=== PATIENT | male | born 1985 ===

== ENCOUNTER 2016-12-10 14:18 | Inpatient (IN) | payer MEDICAID ==
[2016-12-10 14:18] VITALS: BMI 25.8
[2016-12-10 14:35] VITALS: O2SAT 99
[2016-12-10 15:29] LABS: BASO # 0.1 K/uL (0.0-0.2); BASO % 0.7 % (0.0-2.0); EOS # 0.1 K/uL (0.0-0.7); EOS % 1.5 % (0.0-4.0); HEMATOCRIT 41.2 % (35.0-51.0); LYMPH % 14.6 % (20.0-40.0); MEAN CELL VOLUME 91.4 fL (80.0-94.0); MEAN CORPUSCULAR HEMOGLOBIN 30.8 pg (27.0-31.0); MEAN CORPUSCULAR HGB CONC 33.7 g/dL (33.0-37.0); MEAN PLATELET VOLUME 8.8 fL (7.2-11.7); MONO # 0.8 K/uL (0.0-0.8); MONO % 11.7 % (0.0-10.0); RED CELL DISTRIBUTION WIDTH 13.2 % (11.5-14.5); WHITE BLOOD COUNT 6.9 K/uL (4.8-10.8)
[2016-12-10 15:38] LABS: CHLORIDE 94 mmol/L (98-107); POTASSIUM 4.3 mmol/L (3.6-5.2); SODIUM 138 mmol/L (132-148)
[2016-12-10 15:40] LABS: ALB/GLOB RATIO 1.4 (1.0-2.1); ALKALINE PHOSPHATASE 67 U/L (38-126); AST/SGOT 31 U/L (17-59); BILIRUBIN,TOTAL 0.4 mg/dL (0.2-1.3); CARBON DIOXIDE 28 mmol/L (22-30); GFR AFRICAN-AMERICAN > 60; TOTAL PROTEIN 7.7 g/dL (6.3-8.3)
[2016-12-10 15:41] LABS: ALCOHOL SERUM < 10 mg/dl (0-10); ALT/SGPT 21 U/L (21-72); BLOOD UREA NITROGEN 7 mg/dL (9-20); CALCIUM 8.9 mg/dl (8.6-10.4); GLUCOSE,RANDOM 89 mg/dL (75-110)
--- NOTE | 2016-12-10 15:46 | C.PDOC ---
History Of Present Illness 31 y/o male, whose PMHx includes hypertension (not compliant with medication), presents to the ED complaining of depression and suicidal ideation. Patient is also requesting detox from heroin IV, states last use was yesterday. Notes he hasn't been feeling well, believes its from the withdrawal. Patient notes complaints of body aches, nausea, and headache. He is also requesting food, states he has not eaten today. Patient denies any fever, neck pain, n/v/ diarrhea. Time Seen by Provider: 12/10/16 14:58 Chief Complaint (Nursing): Substance Abuse History Per: Patient History/Exam Limitations: no limitations Onset/Duration Of Symptoms: Days, Gradual, Persistent Current Symptoms Are (Timing): Still Present Involuntary Hold By: None Recent travel outside of the [place]: No Past Medical History Reviewed: Historical Data, Nursing Documentation, Vital Signs Vital Signs: Last Vital Signs Temp 97.9 F 12/10/16 14:31 Pulse 86 12/10/16 14:31 Resp 16 12/10/16 14:31 BP 128/84 12/10/16 14:31 Pulse Ox 99 12/10/16 18:34 - Medical History PMH: Anxiety, Depression, HTN, Hypercholesterolemia Surgical History: No Surg Hx Family History: States: Unknown Family Hx - Social History Hx Tobacco Use: Yes (light smoker) Hx Alcohol Use: Yes Hx Substance Use: Yes - Immunization History Hx Tetanus Toxoid Vaccination: No Hx Influenza Vaccination: No Hx Pneumococcal Vaccination: No Review Of Systems Except As Marked, All Systems Reviewed And Found Negative. Constitutional: Positive for: Other (body aches). Negative for: Fever Gastrointestinal: Positive for: Nausea Musculoskeletal: Negative for: Neck Pain Neurological: Positive for: Headache Psych: Positive for: Depression, Suicidal ideation Physical Exam - Physical Exam Appears: Non-toxic, No Acute Distress Skin: Normal Color, Warm, Dry Head: Atraumatic, Normacephalic Eye(s): bilateral: Normal Inspection, PERRL, EOMI Nose: Normal Oral Mucosa: Moist Neck: Normal ROM, Supple Chest: Symmetrical Cardiovascular: Rhythm Regular Respiratory: Normal Breath Sounds, No Accessory Muscle Use Gastrointestinal/Abdominal: Normal Exam, Soft, No Tenderness Back: Normal Inspection, No CVA Tenderness Extremity: Normal ROM, Other (track olvera to b/l upper extremities - no erythema or discharge) Neurological/Psych: Oriented x3, Normal Speech, Normal Cognition ED Course And Treatment - Laboratory Results Result Diagrams: 12/10/16 15:25 12/10/16 15:25 O2 Sat by Pulse Oximetry: 99 (ra) Pulse Ox Interpretation: Normal Progress Note: Patient placed under 1:1 observation. Plan: Blood Work, Urinalysis, Motrin PO, Zofran PO. Patient accepted for admission under the care of Dr. Eduar Khan. Disposition - Disposition Disposition: HOSPITALIZED Disposition Time: 18:53 Condition: STABLE - Clinical Impression Clinical Impression: Bipolar affective disorder, Opioid abuse - PA / [employer] / Resident Statement MD/DO has reviewed & agrees with the documentation as recorded. - Scribe Statement The provider has reviewed the documentation as recorded by the Scribe (Padmini Rust) All medical record entries made by the Scribe were at my direction and personally dictated by me. I have reviewed the chart and agree that the record accurately reflects my personal performance of the history, physical exam, medical decision making, and the department course for this patient. I have also personally directed, reviewed, and agree with the discharge instructions and disposition.
[2016-12-10 17:42] LABS: URINE BACTERIA RARE (<OCC); URINE BILIRUBIN NEGATIVE (NEGATIVE); URINE BLOOD NEGATIVE (NEGATIVE); URINE COLOR Yellow (YELLOW); URINE GLUCOSE (UA) NORMAL (Normal); URINE KETONE NEGATIVE (NEGATIVE); URINE LEUKOCYTE ESTERASE NEG Leu/uL (Negative); URINE PROTEIN NEGATIVE (NEGATIVE); URINE UROBILINOGEN NORMAL mg/dL (0.2-1.0)
[2016-12-10] MEDS ORDERED: Pneumococcal 23-Valent Vaccine IM ONE (21:13)
[2016-12-10] MEDS ORDERED: Influenza Virus Vaccine 45 mcg/0.5 ml Syr IM ONE (21:13)
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
--- NOTE | 2016-12-12 15:17 | PCM.PYCHPN ---
Psychiatric Progress Note - Psychiatric Progress Note Patient seen today, length of contact: 17 min Patient Chief Complaint: I am experiencing withdrawal symptoms Problems Identified/Issues Discussed: Patient seen and evaluated, chart reviewed and discussed with the nurse. Supportive therapy and psychoeducation were given. Patient reports irritable mood and reports withdrawal symptoms including, cramps , nausea, anxiety and headaches. Patient reports depressed mood and reports feelings of hopelessness and helplessness. He denies any auditory or visual hallucinations. He is tolerating the withdrawal medications and denies any side effects. Medication Change: Yes (Methadone taper) Medical Record Reviewed: Yes Mental Status Examination - Cognitive Function Orientation: Person, Place, Situation, Time Memory: Intact Attention: WNL Concentration: Poor Association: WNL Fund of Knowledge: Poor - Mood Mood: Depressed - Affect Affect: Constricted, Depressed - Speech Speech: Appropriate - Formal Thought Process Formal Thought Process: No Impairment - Suicidal Ideation Suicidal Ideation: No - Homicidal Ideation Homicidal Ideation: No Goal/Treatment Plan - Goal/Treatment Plan Need for Continued Stay: Discharge may exacerbated symptoms, Severe functional impairment Progress Toward Problem(s) and Goals/Treatment Plan: Bipolar disorder mixed severe without psychotic features CBT Psychoeducation Supportive therapy and group therapy Paroxetine 10 mg PO QAM Trazadone 50 mg PO HS Clonidine 0.1 mg PO Q6 PRN Dicyclomine 10 mg PO Q6 PRN Diphenhydramine 50 mg PO Q6 PRN Opioid use disorder severe CBT Psychoeducation Supportive therapy, individual therapy Use [place] for abstinence Opioid withdrawal CBT Psychoeducation Supportive therapy, individual therapy Clonidine when necessary Methadone taper Hypothyroidism Continue prescribed medications Monitor s/s - Smoking Cessation Smoking Cessation Initiated: Yes
--- NOTE | 2016-12-13 13:41 | PCM.PYCHPN ---
Psychiatric Progress Note - Psychiatric Progress Note Patient seen today, length of contact: 16 min Patient Chief Complaint: I am feeling depressed and irritable. Problems Identified/Issues Discussed: Patient seen and evaluated, chart reviewed and discussed with the nurse. Today pt reports improvement in his depressed mood and reports improvement in the withdrawal symptoms. however still reports i.e., cramps, nausea, anxiety and headaches. Patient denies any suicidal ideation or homicidal ideation. He is tolerating the withdrawal medications and denies any side effects. Supportive therapy and psychoeducation were given. Medication Change: Yes (Increase Paxil, Methadone taper) Medical Record Reviewed: Yes Mental Status Examination - Cognitive Function Orientation: Person, Place, Situation, Time Memory: Intact Attention: WNL Concentration: Poor Association: WNL Fund of Knowledge: Poor - Mood Mood: Depressed - Affect Affect: Depressed - Speech Speech: Pressured - Formal Thought Process Formal Thought Process: No Impairment - Suicidal Ideation Suicidal Ideation: No - Homicidal Ideation Homicidal Ideation: No Goal/Treatment Plan - Goal/Treatment Plan Need for Continued Stay: Discharge may exacerbated symptoms, Severe functional impairment Progress Toward Problem(s) and Goals/Treatment Plan: Bipolar disorder mixed severe without psychotic features CBT Psychoeducation Supportive therapy and group therapy Paroxetine 20 mg PO QAM Trazadone 50 mg PO HS Clonidine 0.1 mg PO Q6 PRN Dicyclomine 10 mg PO Q6 PRN Diphenhydramine 50 mg PO Q6 PRN Neurontin 400 mg pO TID Opioid use disorder severe CBT Psychoeducation Supportive therapy, individual therapy Use [place] for abstinence Opioid withdrawal CBT Psychoeducation Supportive therapy, individual therapy Clonidine when necessary Methadone Hypothyroidism Continue prescribed medications Monitor s/s - Smoking Cessation Smoking Cessation Initiated: Yes
[2016-12-14] MEDS ORDERED: CHOLECALCIFEROL 1000 UNIT PO SCH (10:00)
--- NOTE | 2016-12-14 12:38 | PCM.PYCHPN ---
Psychiatric Progress Note - Psychiatric Progress Note Patient seen today, length of contact: 18 min Patient Chief Complaint: I am feeling little better. Problems Identified/Issues Discussed: Patient seen and evaluated, chart reviewed and discussed with the nurse. As per the staff pt is improving and his withdrawal symptoms are getting better. However, he reports irritability and agitation and reports withdrawal symptoms i.e., cramps,anxiety and headaches. However, he denies any auditory or visual hallucinations. He is taking medications and denies any side effects. Supportive therapy and psychoeducation were given. Medication Change: Yes (Depakote, Methadone taper) Medical Record Reviewed: Yes Mental Status Examination - Cognitive Function Orientation: Person, Place, Situation, Time Memory: Intact Attention: WNL Concentration: WNL Association: WNL Fund of Knowledge: Poor - Mood Mood: Depressed - Affect Affect: Depressed - Speech Speech: Pressured - Formal Thought Process Formal Thought Process: No Impairment - Suicidal Ideation Suicidal Ideation: No - Homicidal Ideation Homicidal Ideation: No Goal/Treatment Plan - Goal/Treatment Plan Need for Continued Stay: Discharge may exacerbated symptoms, Severe functional impairment Progress Toward Problem(s) and Goals/Treatment Plan: Bipolar disorder mixed severe without psychotic features CBT Psychoeducation Supportive therapy and group therapy Paroxetine 20 mg PO QAM Trazadone 50 mg PO HS Clonidine 0.1 mg PO Q6 PRN Dicyclomine 10 mg PO Q6 PRN Diphenhydramine 50 mg PO Q6 PRN Neurontin 400 mg pO TID Opioid use disorder severe CBT Psychoeducation Supportive therapy, individual therapy Use [place] for abstinence Opioid withdrawal CBT Psychoeducation Supportive therapy, individual therapy Clonidine when necessary Methadone Hypothyroidism Continue prescribed medications Monitor s/s Vit D deficiency Continue prescribed medications Monitor s/s - Smoking Cessation Smoking Cessation Initiated: No
[2016-12-14] MEDS: Divalproex 250 mg DR Tab PO SCH (17:11)
[2016-12-15] MEDS: Divalproex 250 mg DR Tab PO SCH ×2 (10:16→18:04)
--- NOTE | 2016-12-15 14:53 | PCM.PYCHPN ---
Psychiatric Progress Note - Psychiatric Progress Note Patient seen today, length of contact: 15 minutes Patient Chief Complaint: I don't feel better especially at night. After dinnertime I feel withdrawal symptoms every night. Problems Identified/Issues Discussed: Patient seen. Chart reviewed. Case discussed with the staff. Issues related to illness and treatment were discussed with the patient. Patient reported compliant with treatment with no adverse affects. Tolerating treatment very well. Patient reported that he feels better during the day at after dinnertime he feels withdrawal symptoms including body aches, abdominal cramps, nausea, restlessness, sleeping difficulty. Patient's blood pressure was on floor side. Education provided about the treatment and his blood pressure has most of the medication can further reduce his blood pressure. Patient understood and agreed. If needed will call the medicine. But otherwise patient is feeling better and stable denied any chest pain, shortness of breath, drowsiness, or dizziness, no headache. At the time of evaluation, patient was awake alert oriented 3, had no delusions, no auditory or visual hallucinations, no suicidal ideations or homicidal ideations. Medical Problems: Hypothyroidism Diagnostic Results: Reviewed DSM 5 Symptoms Update: Improving with treatment Medication Change: No Medical Record Reviewed: Yes Mental Status Examination - Cognitive Function Orientation: Person, Place, Situation, Time Memory: Intact Attention: WNL Concentration: WNL Association: WN Fund of Knowledge: [facility] Decription of patient's judgement and insights: Fair - Mood Mood: Anxious (At times) - Affect Affect: Other (Appropriate) - Speech Speech: Soft - Formal Thought Process Formal Thought Process: No Impairment Psychotic Thoughts and Behaviors: None - Suicidal Ideation Suicidal Ideation: No - Homicidal Ideation Homicidal Ideation: No Goal/Treatment Plan - Goal/Treatment Plan Need for Continued Stay: Remain at risks for inpatient hospitalization, Discharge may exacerbated symptoms, Severe functional impairment Progress Toward Problem(s) and Goals/Treatment Plan: Patient education Supportive therapy Continue treatment as before Because his blood pressure is on the outside, discussed with patient some precautions to avoid fall. Patient understood and agreed. Estimated Date of D/C: 12/17/16 - Smoking Cessation Smoking Cessation Initiated: No
[2016-12-16 07:20] VITALS: RESP 18; TEMP 98.7
--- NOTE | 2016-12-16 12:16 | PCM.PYCHPN ---
Psychiatric Progress Note - Psychiatric Progress Note Patient seen today, length of contact: 15 minutes Patient Chief Complaint: I don't feel better. Problems Identified/Issues Discussed: Patient seen. Chart reviewed. Case discussed with the staff. Issues related to illness and treatment were discussed with the patient. Patient reported compliant with treatment with no adverse affects. Tolerating treatment very well. Patient reported that he does not feel much better. Patient's blood pressure was still on the lower side. Education provided about the treatment and his blood pressure as most of the medication can further reduce his blood pressure. Patient understood and agreed. His blood pressure medications and some other medications are on hold. Patient denied any chest pain, shortness of breath, drowsiness, or dizziness, no headache. At the time of evaluation, patient was awake alert oriented 3, had no delusions, no auditory or visual hallucinations, no suicidal ideations or homicidal ideations. Medical Problems: Hypothyroidism Diagnostic Results: Reviewed DSM 5 Symptoms Update: Some improvement with treatment Medication Change: No Medical Record Reviewed: Yes Mental Status Examination - Cognitive Function Orientation: Person, Place, Situation, Time Memory: Intact Attention: WNL Concentration: WNL Association: WN Fund of Knowledge: [facility] Decription of patient's judgement and insights: Fair - Mood Mood: Anxious (At times) - Affect Affect: Other (Appropriate) - Speech Speech: Soft - Formal Thought Process Formal Thought Process: No Impairment Psychotic Thoughts and Behaviors: None - Suicidal Ideation Suicidal Ideation: No - Homicidal Ideation Homicidal Ideation: No Goal/Treatment Plan - Goal/Treatment Plan Need for Continued Stay: Remain at risks for inpatient hospitalization, Discharge may exacerbated symptoms, Severe functional impairment Progress Toward Problem(s) and Goals/Treatment Plan: Patient education Supportive therapy Continue treatment as before Because his blood pressure is on the lower side, again discussed with patient some precautions to avoid fall. Patient understood and agreed. Estimated Date of D/C: 12/17/16 - Smoking Cessation Smoking Cessation Initiated: No
[2016-12-16] MEDS: Divalproex 250 mg DR Tab PO SCH ×2 (12:46→18:07)
[2016-12-16 16:15] VITALS: PULSE 76
[2016-12-17] MEDS ORDERED: Divalproex 500 mg DR Tab PO SCH (10:00)
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
[2016-12-17 10:30] VITALS: BP 122/75
[2016-12-20] MEDS ORDERED: Ergocalciferol 50,000 Intl Units Cap PO SCH (10:00)
== END 2016-12-17 12:40 | disposition home or self-care (01) | DRG 745 ==
LOC: C.ER 14:18 → C.5E 18:50
PROVIDERS: ADMIT Psychiatry & Neurology Psychiatry; ATTEND Psychiatry & Neurology Psychiatry
PROC: HZ2ZZZZ Detoxification Services for Substance Abuse Treatment (ICD-10-PCS; principal; 2016-12-10)
PROC: HZ32ZZZ Individual Counseling for Substance Abuse Treatment, Cognitive-Behavioral (ICD-10-PCS; 2016-12-10)
PROC: HZ93ZZZ Pharmacotherapy for Substance Abuse Treatment, Antabuse (ICD-10-PCS; 2016-12-10)
PROC: GZHZZZZ Group Psychotherapy (ICD-10-PCS; 2016-12-10)
PROC: GZ58ZZZ Individual Psychotherapy, Cognitive-Behavioral (ICD-10-PCS; 2016-12-10)
PROC: GZ56ZZZ Individual Psychotherapy, Supportive (ICD-10-PCS; 2016-12-10)
DX: F11.23 Opioid dependence with withdrawal (principal); F31.63 Bipolar disorder, current episode mixed, severe, without psychotic features; I10 Essential (primary) hypertension; Z91.14 Patient's other noncompliance with medication regimen; F17.200 Nicotine dependence, unspecified, uncomplicated; E03.9 Hypothyroidism, unspecified; F41.9 Anxiety disorder, unspecified; G47.00 Insomnia, unspecified; E78.5 Hyperlipidemia, unspecified; E78.00 Pure hypercholesterolemia, unspecified; E55.9 Vitamin D deficiency, unspecified; Z91.5 Personal history of self-harm

== ENCOUNTER 2017-01-21 22:39 | Inpatient (IN) | payer MEDICAID, OTHER ==
[2017-01-21 22:40] VITALS: BMI 25.8
--- NOTE | 2017-01-22 00:16 | C.PDOC ---
History Of Present Illness 31 y/o male presents to ED with complaint of depression and suicidal ideation. Patient reports he recently relapsed on heroin. Denies any suicidal action, homicidal ideaton, or other complaints at this time. Time Seen by Provider: 01/22/17 00:16 Chief Complaint (Nursing): Psychiatric Evaluation History Per: Patient History/Exam Limitations: no limitations Onset/Duration Of Symptoms: Days Current Symptoms Are (Timing): Still Present Modifying Factor(s): Narcotics Associated Symptoms: Depression, Suicidal Thoughts Recent travel outside of the [place]: No Past Medical History Reviewed: Historical Data, Nursing Documentation, Vital Signs Vital Signs: Last Vital Signs Temp 98.4 F 01/21/17 22:48 Pulse 88 01/21/17 22:48 Resp 18 01/21/17 22:48 BP 137/85 01/21/17 22:48 Pulse Ox 95 01/22/17 05:45 - Medical History PMH: Anxiety, Depression, HTN, Hypercholesterolemia - [facility] Procedures DETOXIFICATION SERVICES FOR SUBSTANCE ABUSE TREATMENT (12/10/16) GROUP PSYCHOTHERAPY (12/25/16) INDIV PHARMACIST HELPER FOR SUBSTANCE ABUSE, COGNITIVE BEHAVIORAL (12/10/16) INDIVIDUAL PSYCHOTHERAPY, BEHAVIORAL (12/25/16) INDIVIDUAL PSYCHOTHERAPY, COGNITIVE-BEHAVIORAL (12/10/16) INDIVIDUAL PSYCHOTHERAPY, SUPPORTIVE (12/10/16) PHARMACOTHERAPY FOR SUBSTANCE ABUSE TREATMENT, ANTABUSE (12/10/16) Family History: States: Unknown Family Hx - Social History Hx Tobacco Use: Yes (light smoker) Hx Alcohol Use: Yes Hx Substance Use: Yes (marijuana,cocaine,heroin) - Immunization History Hx Tetanus Toxoid Vaccination: No Hx Influenza Vaccination: No Hx Pneumococcal Vaccination: No Review Of Systems Constitutional: Negative for: Fever, Chills Gastrointestinal: Negative for: Nausea, Vomiting, Abdominal Pain Skin: Positive for: Lesions (right forearm abrasion). Negative for: Rash Psych: Positive for: Depression, Suicidal ideation Physical Exam - Physical Exam Appears: Non-toxic, No Acute Distress Skin: Warm, Dry Head: Atraumatic, Normacephalic Chest: Symmetrical Cardiovascular: Rhythm Regular Respiratory: No Rales, No Rhonchi, No Wheezing Gastrointestinal/Abdominal: Soft, No Tenderness Back: Normal Inspection Extremity: Normal ROM, Capillary Refill (< 2 sec. ), Other (small abrasion right forearm, 2.0 x 3.0 cm ) Neurological/Psych: Oriented x3, Normal Speech, Normal Cognition ED Course And Treatment - Laboratory Results Result Diagrams: 01/22/17 00:36 01/22/17 00:36 O2 Sat by Pulse Oximetry: 95 (RA) Pulse Ox Interpretation: Normal ED OBSERVATION - Progress Note Progress Note: 01/22/17 02:44 vitals stable no complaints 01/22/17 05:44 Disposition Counseled Patient/Family Regarding: Studies Performed, Diagnosis - Disposition Disposition Time: 00:16 Condition: UNKNOWN - Clinical Impression Clinical Impression: Depression, Opioid abuse - Scribe Statement The provider has reviewed the documentation as recorded by the Scribe Delmar Pineda Provider Scribe Attestation: All medical record entries made by the Scribe were at my direction and personally dictated by me. I have reviewed the chart and agree that the record accurately reflects my personal performance of the history, physical exam, medical decision making, and the department course for this patient. I have also personally directed, reviewed, and agree with the discharge instructions and disposition. Physician Patient Turnover Patient Signed Over To: Phuong Magallon Handoff Comments: pending crisis eval
[2017-01-22 00:23] LABS: RBC URINE 1 /hpf (0-3); URINE BILIRUBIN NEGATIVE (NEGATIVE); URINE BLOOD NEGATIVE (NEGATIVE); URINE COLOR Yellow (YELLOW); URINE GLUCOSE (UA) NORMAL (Normal); URINE KETONE TRACE mg/dL (NEGATIVE); URINE LEUKOCYTE ESTERASE NEG Leu/uL (Negative); URINE PROTEIN 1+ mg/dL (NEGATIVE); URINE UROBILINOGEN NORMAL mg/dL (0.2-1.0); WBC URINE 1 /hpf (0-5)
[2017-01-22 00:39] LABS: BASO # 0.1 K/uL (0.0-0.2); BASO % 0.9 % (0.0-2.0); EOS # 0.2 K/uL (0.0-0.7); EOS % 2.9 % (0.0-4.0); HEMATOCRIT 39.5 % (35.0-51.0); LYMPH # 1.6 K/uL (1.0-4.3); LYMPH % 27.9 % (20.0-40.0); MEAN CELL VOLUME 89.6 fL (80.0-94.0); MEAN CORPUSCULAR HEMOGLOBIN 29.6 pg (27.0-31.0); MONO # 0.7 K/uL (0.0-0.8); MONO % 11.8 % (0.0-10.0); WHITE BLOOD COUNT 5.7 K/uL (4.8-10.8)
[2017-01-22 00:48] LABS: CHLORIDE 94 mmol/L (98-107); POTASSIUM 3.3 mmol/L (3.6-5.2); SODIUM 134 mmol/L (132-148)
[2017-01-22 00:50] LABS: ALB/GLOB RATIO 1.4 (1.0-2.1); ALKALINE PHOSPHATASE 66 U/L (38-126); AST/SGOT 20 U/L (17-59); BILIRUBIN,TOTAL 0.6 mg/dL (0.2-1.3); CARBON DIOXIDE 29 mmol/L (22-30); GFR AFRICAN-AMERICAN > 60; TOTAL PROTEIN 7.5 g/dL (6.3-8.3)
[2017-01-22 00:51] LABS: ALCOHOL SERUM < 10 mg/dl (0-10); ALT/SGPT 23 U/L (21-72); BLOOD UREA NITROGEN 8 mg/dL (9-20); GLUCOSE,RANDOM 99 mg/dL (75-110)
--- NOTE | 2017-01-22 10:06 | PCM.PSYCH ---
Initial Psychiatric Evaluation - Initial Psychiatric Evaluation Type of Admission: Voluntary Legal Status: Capacity Chief Complaint (in patient's own words): I m feeling very depressed and suicidal History of Present Illness and Precipitating Events: Patient is a 31 year old single male. He has one child, age 9 who lives with her mother. 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 Patient presented to the hospital because of heroin abuse, and depressed mood and suicidal ideation. Patient was discharged on 12/29 from [place] where he was hospitalized for depression and substance abuse. After discharge he said he went to NA meetings and relapsed shortly after. Patient has been hospitalized at [facility] 2x before. He has been using 2-3 bundles a day IV and intranasal. He also takes 6 mg of Xanax every day. He smokes 2-3 cigarettes a day and drinks socially. Patient has been using heroin on and off for five years. His longest period of sobriety was 11 months. Patient transitioned to using heroin after abusing opioid painkillers for recreation. Patient says he occasionally does cocaine and smokes marijuana. Pt says he has tried suboxone maintenance therapy in the past. Patient reports a history of depression and anxiety. He was seeing a psychiatrist at [facility] but has not followed up. He is currently feeling depressed and anxious and reports feelings of hopelessness and helplessness. Reports suicidal ideation without any plan. Reports anxiety irritability and agitation and reports withdrawal symptoms including shaking, lack of appetite, sweating, and insomnia. He denies any visual, auditory hallucinations or paranoid thoughts. Allergies: NKDA PMH: Asthma PsychHx: Anxiety, Depression FamPsychHx: denies Current Medications: Active Medications Generic Name Dose Route Start Last Admin Trade Name Freq PRN Reason Stop Dose Admin Aspirin 81 mg 01/22/17 10:00 Ecotrin PO DAILY XIN Gabapentin 300 mg 01/22/17 10:00 Neurontin PO TID XIN Hydroxyzine HCl 50 mg 01/22/17 09:41 Atarax PO Q6H PRN Anxiety Metoprolol Tartrate 25 mg 01/22/17 10:00 Lopressor PO BID XIN Multivitamins/Minerals 1 tab 01/22/17 10:00 Therapeutic-M Tab PO DAILY XIN Quetiapine Fumarate 300 mg 01/22/17 22:00 Seroquel PO HS XIN Trazodone HCl 100 mg 01/22/17 22:00 Desyrel PO HS PRN Insomnia Past Psychiatric History - Past Psychiatric History Previous Treatment History: Inpatient Pertinent Medical Hx (Current Medical&Sleep Prob, Allergies): Allergies Allergy/AdvReac Type Severity Reaction Status Date / Time No Known Allergies Allergy Verified 01/21/17 22:52 Aspirin [Ecotrin] 81 mg PO DAILY 10/05/16 Gabapentin [Neurontin] 300 mg PO TID cap 12/29/16 Multimineral/Multivitamin [Therapeutic-M Tab] 1 tab PO DAILY tab 12/29/16 PARoxetine [Paxil] 20 mg PO QAM #30 tab 12/29/16 Atorvastatin Calcium 10 mg PO HS 01/21/17 Buspirone HCl [Buspirone HCl] 7.5 mg PO BID 01/21/17 Escitalopram [Lexapro] 20 mg PO DAILY 01/21/17 Metoprolol Tartrate [Lopressor] 25 mg PO BID 01/21/17 Nitroglycerin 0.4 mg SL PRN 01/21/17 QUEtiapine [SEROquel] 300 mg PO HS 01/21/17 Vitamin D3 1,000 units PO DAILY 01/21/17 traZODone [Desyrel] 100 mg PO HS 01/21/17 Review of Systems - Review of Systems All systems: reviewed and no additional remarkable complaints except - Psychiatric Psychiatric: Anxiety, Depression, Irritability, Suicidal Ideation. absent: Auditory Hallucinations, Visual Hallucinations Mental Status Examination - Personal Presentation Personal Presentation: Looks stated age - Affect Affect: Constricted, Depressed - Motor Activity Motor Activity: Calm - Reliability in Providing Information Reliability in Providing Information: Good - Speech Speech: Organized - Mood Mood: Depressed, Anxious - Formal Thought Process Formal Thought Process: No Impairment - Obsessions/Compulsions Obsessions: No Compulsions: No - Cognitive Functions Orientation: Person, Place, Situation, Time Sensorium: Alert Attention/Concentration: Attentive Abstract Thinking: Ucon Estimate of Intelligence: Below average Judgement: Imparied, as evidence by: Poor judgement, Imparied, as evidence by: Lack of insight into illness - Risk Risk: Suicidal, Withdrawal, Diminished functioning - Strength & Assets Inventory Strength & Assets Inventory: Cooperative - Limitations Limitations: Living alone DSM 5 DX - DSM 5 DSM 5 Diagnosis: bipolar disorder most recent episode depressed severe without psychotic features Opiate use disorder severe Opiate withdrawal sedative/hypnotic use disorder severe Sedative/hypnotic withdrawal - Recommended/Plan of Treatment Treatment Recommendations and Plan of Treatment: Bipolar disorder most recent episode depressed severe without psychotic features CBT Psychoeducation Supportive therapy, individual therapy Lexapro 10 mg by mouth daily Neurontin 300 mg by mouth 3 times a day Seroquel 300 mg PO QHS Trazodone 100 mg PO Q HS Opioid use disorder severe CBT Psychoeducation Supportive therapy, individual therapy Use [place] for abstinence Opioid withdrawal CBT Psychoeducation Supportive therapy, individual therapy Clonidine when necessary Methadone taper Sedative/hypnotic use disorder severe CBT Psychoeducation Supportive therapy, individual therapy Use [place] for abstinence Sedative/hypnotic withdrawal CBT Psychoeducation Supportive therapy, individual therapy Ativan 1 mg to 6 hours when necessary CAD Continue prescribed medication (aspirin, metoprolol) Monitor signs and symptoms - Smoking Cessation Smoking Cessation Initiated: No
[2017-01-22] MEDS: Multivitamin With Minerals Tab PO SCH (10:13)
[2017-01-23] MEDS: Multivitamin With Minerals Tab PO SCH (10:26)
--- NOTE | 2017-01-23 14:46 | PCM.PYCHPN ---
Psychiatric Progress Note - Psychiatric Progress Note Patient seen today, length of contact: 16 min Patient Chief Complaint: 'I m feeling very depressed' Problems Identified/Issues Discussed: Patient seen and evaluated, chart reviewed and discussed with the nurse. As per the staff, patient still appears isolated, depressed and withdrawn. Patient still reports depressed mood and reports at times feelings of hopelessness or helplessness. He reports withdrawal symptoms including cramps, nausea, back pain, anxiety and sweating. He denies any auditory or visual hallucinations or any psychotic symptoms. He is taking medication and denies any side effects Supportive therapy and psychoeducation were given. Medication Change: Yes (Methadone taper) Medical Record Reviewed: Yes Mental Status Examination - Cognitive Function Orientation: Person, Place, Situation, Time Memory: Intact Attention: WNL Concentration: Poor Association: WNL Fund of Knowledge: Poor - Mood Mood: Depressed, Anxious - Affect Affect: Constricted, Depressed - Speech Speech: Soft - Formal Thought Process Formal Thought Process: No Impairment - Suicidal Ideation Suicidal Ideation: No - Homicidal Ideation Homicidal Ideation: No Goal/Treatment Plan - Goal/Treatment Plan Need for Continued Stay: Discharge may exacerbated symptoms, Severe functional impairment Progress Toward Problem(s) and Goals/Treatment Plan: Bipolar disorder most recent episode depressed severe without psychotic features CBT Psychoeducation Supportive therapy, individual therapy Lexapro 10 mg by mouth daily Neurontin 300 mg by mouth 3 times a day Seroquel 300 mg PO QHS Trazodone 100 mg PO Q HS Opioid use disorder severe CBT Psychoeducation Supportive therapy, individual therapy Use [place] for abstinence Opioid withdrawal CBT Psychoeducation Supportive therapy, individual therapy Clonidine when necessary Methadone taper Sedative/hypnotic use disorder severe CBT Psychoeducation Supportive therapy, individual therapy Use [place] for abstinence Sedative/hypnotic withdrawal CBT Psychoeducation Supportive therapy, individual therapy Ativan 1 mg to 6 hours when necessary CAD Continue prescribed medication (aspirin, metoprolol) Monitor signs and symptoms - Smoking Cessation Smoking Cessation Initiated: No
--- NOTE | 2017-01-24 15:27 | PCM.PYCHPN ---
Psychiatric Progress Note - Psychiatric Progress Note Patient seen today, length of contact: 16 min Patient Chief Complaint: 'I m feeling a little better ' Problems Identified/Issues Discussed: Patient seen and evaluated, chart reviewed and discussed with the nurse. Patient reports improvement in his mood and withdrawal symptoms but still reports depressed mood and appears isolated and withdrawn. Patient still reports withdrawal symptoms including cramps, nausea, back pain, anxiety and sweating. He denies any auditory or visual hallucinations or any psychotic symptoms. He is taking medication and denies any side effects Supportive therapy and psychoeducation were given. Medication Change: Yes (Methadone taper) Medical Record Reviewed: Yes Mental Status Examination - Cognitive Function Orientation: Person, Place, Situation, Time Memory: Intact Attention: WNL Concentration: Poor Association: WNL Fund of Knowledge: Poor - Mood Mood: Depressed, Anxious - Affect Affect: Constricted, Depressed - Speech Speech: Soft - Formal Thought Process Formal Thought Process: No Impairment - Suicidal Ideation Suicidal Ideation: No - Homicidal Ideation Homicidal Ideation: No Goal/Treatment Plan - Goal/Treatment Plan Need for Continued Stay: Discharge may exacerbated symptoms, Severe functional impairment Progress Toward Problem(s) and Goals/Treatment Plan: Bipolar disorder most recent episode depressed severe without psychotic features CBT Psychoeducation Supportive therapy, individual therapy Lexapro 10 mg by mouth daily Neurontin 300 mg by mouth 3 times a day Seroquel 300 mg PO QHS Trazodone 100 mg PO Q HS Opioid use disorder severe CBT Psychoeducation Supportive therapy, individual therapy Use [place] for abstinence Opioid withdrawal CBT Psychoeducation Supportive therapy, individual therapy Clonidine when necessary Methadone taper Sedative/hypnotic use disorder severe CBT Psychoeducation Supportive therapy, individual therapy Use [place] for abstinence Sedative/hypnotic withdrawal CBT Psychoeducation Supportive therapy, individual therapy Ativan 1 mg to 6 hours when necessary CAD Continue prescribed medication (aspirin, metoprolol) Monitor signs and symptoms - Smoking Cessation Smoking Cessation Initiated: No
[2017-01-25 07:12] VITALS: O2SAT 100
--- NOTE | 2017-01-25 09:35 | PCM.PYCHPN ---
Psychiatric Progress Note - Psychiatric Progress Note Patient seen today, length of contact: 16 min Patient Chief Complaint: 'I m feeling very anxious' Problems Identified/Issues Discussed: Patient seen and evaluated, chart reviewed and discussed with the nurse. Today patient reports very high anxiety and irritability and racing of thoughts. As per him and his mind is all over and he is feeling very irritable and agitated. Patient still reports at times depressed mood and reports withdrawal symptoms including cramps, nausea, back pain, anxiety and sweating. He denies any auditory or visual hallucinations or any psychotic symptoms. He is taking medication and denies any side effects Supportive therapy and psychoeducation were given. Medication Change: Yes (Methadone taper, start Depakote) Medical Record Reviewed: Yes Mental Status Examination - Cognitive Function Orientation: Person, Place, Situation, Time Memory: Intact Attention: WNL Concentration: Poor Association: WNL Fund of Knowledge: Poor - Mood Mood: Depressed, Anxious - Affect Affect: Constricted, Depressed - Speech Speech: Soft - Formal Thought Process Formal Thought Process: No Impairment - Suicidal Ideation Suicidal Ideation: No - Homicidal Ideation Homicidal Ideation: No Goal/Treatment Plan - Goal/Treatment Plan Need for Continued Stay: Discharge may exacerbated symptoms, Severe functional impairment Progress Toward Problem(s) and Goals/Treatment Plan: Bipolar disorder most recent episode depressed severe without psychotic features CBT Psychoeducation Supportive therapy, individual therapy Lexapro 10 mg by mouth daily Neurontin 300 mg by mouth 3 times a day Seroquel 300 mg PO QHS Trazodone 100 mg PO Q HS start Depakote 250 mg by mouth twice a day Opioid use disorder severe CBT Psychoeducation Supportive therapy, individual therapy Use [place] for abstinence Opioid withdrawal CBT Psychoeducation Supportive therapy, individual therapy Clonidine when necessary Methadone taper Sedative/hypnotic use disorder severe CBT Psychoeducation Supportive therapy, individual therapy Use [place] for abstinence Sedative/hypnotic withdrawal CBT Psychoeducation Supportive therapy, individual therapy Ativan 1 mg to 6 hours when necessary CAD Continue prescribed medication (aspirin, metoprolol) Monitor signs and symptoms - Smoking Cessation Smoking Cessation Initiated: No
[2017-01-25] MEDS ORDERED: Pneumococcal 23-Valent Vaccine IM ONE (10:00)
[2017-01-25] MEDS: Divalproex 250 mg DR Tab PO SCH ×2 (15:17→18:03)
[2017-01-25] MEDS: Multivitamin With Minerals Tab PO SCH (18:03)
[2017-01-26] MEDS: Multivitamin With Minerals Tab PO SCH (09:54)
[2017-01-26] MEDS: Divalproex 250 mg DR Tab PO SCH ×2 (09:56→19:13)
--- NOTE | 2017-01-26 14:40 | PCM.PYCHPN ---
Psychiatric Progress Note - Psychiatric Progress Note Patient seen today, length of contact: 15 min Patient Chief Complaint: "I'm withdrawing" Problems Identified/Issues Discussed: The pt is seen, chart reviewed, case discussed with staff. The pt is compliant with medications and reports no side-effects. Symptoms are improving but needs more time to stabilize. He claims he is withdrawing but no objective sxs elicited Not suicidal but still depressed After care discussed, support and psychoeducation given. Medication Change: Yes (prn meds) Medical Record Reviewed: Yes Mental Status Examination - Cognitive Function Orientation: Person, Place, Situation, Time Memory: Intact Attention: WNL Concentration: Poor Association: WNL Fund of Knowledge: Poor - Mood Mood: Depressed, Anxious - Affect Affect: Constricted, Depressed - Speech Speech: Soft - Formal Thought Process Formal Thought Process: No Impairment - Suicidal Ideation Suicidal Ideation: No - Homicidal Ideation Homicidal Ideation: No Goal/Treatment Plan - Goal/Treatment Plan Need for Continued Stay: Discharge may exacerbated symptoms, Severe functional impairment Progress Toward Problem(s) and Goals/Treatment Plan: Continue medications Support and psychoeducation daily Attend groups and activities daily After care planning: [facility] in [place]
[2017-01-27 07:41] VITALS: RESP 18
[2017-01-27 07:56] LABS: BASO % 0.6 % (0.0-2.0); EOS # 0.3 K/uL (0.0-0.7); EOS % 4.6 % (0.0-4.0); HEMATOCRIT 41.9 % (35.0-51.0); LYMPH # 1.7 K/uL (1.0-4.3); LYMPH % 30.8 % (20.0-40.0); MEAN CELL VOLUME 90.4 fL (80.0-94.0); MEAN CORPUSCULAR HGB CONC 33.2 g/dL (33.0-37.0); MEAN PLATELET VOLUME 9.1 fL (7.2-11.7); MONO # 0.6 K/uL (0.0-0.8); MONO % 11.1 % (0.0-10.0); NRBC % 0.1 % (0.0-2.0); WHITE BLOOD COUNT 5.7 K/uL (4.8-10.8)
[2017-01-27] MEDS: Divalproex 250 mg DR Tab PO SCH ×2 (09:14→17:27)
[2017-01-27] MEDS: Multivitamin With Minerals Tab PO SCH (14:31)
--- NOTE | 2017-01-28 00:46 | PCM.PYCHPN ---
Psychiatric Progress Note - Psychiatric Progress Note Patient seen today, length of contact: 16 min Patient Chief Complaint: "I'm anxious" Problems Identified/Issues Discussed: The pt is seen, chart reviewed, case discussed with staff. The pt is compliant with medications and reports no side-effects. Symptoms are improving slowly and he needs more time to stabilize. He claims he is very anxious. Anxiety mgt discussed Not suicidal but still depressed After care discussed, support and psychoeducation given. Medication Change: Yes (prn meds) Medical Record Reviewed: Yes Mental Status Examination - Cognitive Function Orientation: Person, Place, Situation, Time Memory: Intact Attention: WNL Concentration: Poor Association: WNL Fund of Knowledge: Poor - Mood Mood: Depressed, Anxious - Affect Affect: Constricted, Depressed - Speech Speech: Soft - Formal Thought Process Formal Thought Process: No Impairment - Suicidal Ideation Suicidal Ideation: No - Homicidal Ideation Homicidal Ideation: No Goal/Treatment Plan - Goal/Treatment Plan Need for Continued Stay: Discharge may exacerbated symptoms, Severe functional impairment Progress Toward Problem(s) and Goals/Treatment Plan: Continue medications Increase depakote as of tomorrow Support and psychoeducation daily Attend groups and activities daily After care planning: [facility] in [place] Consider MAT
[2017-01-28 07:59] VITALS: TEMP 97
[2017-01-28 09:47] VITALS: BP 100/65; PULSE 101
[2017-01-28] MEDS ORDERED: Divalproex 250 mg DR Tab PO SCH (10:00)
--- NOTE | 2017-01-28 10:32 | PCM.PYCHDC ---
Mental Status Examination - Mental Status Examination Orientation: Person, Place, Situation, Time Memory: Intact Mood: Neutral Affect: Constricted Speech: Soft Attention: WNL Concentration: WNL Association: WNL Fund of Knowledge: WNL Formal Thought Process: No Impairment Description of patient's judgement and insight: good, fair Psychotic Thoughts and Behaviors: Denies any AVH Suicidal Ideation: No Current Homicidal Ideation?: No Discharge Summary - Discharge Note Reason for Hospitalization: Patient is a 31 year old single male. He has one child, age 9 who lives with her mother. 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 Patient presented to the hospital because of heroin abuse, and depressed mood and suicidal ideation. Patient was discharged on 12/29 from [place] where he was hospitalized for depression and substance abuse. After discharge he said he went to NA meetings and relapsed shortly after. Patient has been hospitalized at [facility] 2x before. He has been using 2-3 bundles a day IV and intranasal. He also takes 6 mg of Xanax every day. He smokes 2-3 cigarettes a day and drinks socially. Patient has been using heroin on and off for five years. His longest period of sobriety was 11 months. Patient transitioned to using heroin after abusing opioid painkillers for recreation. Patient says he occasionally does cocaine and smokes marijuana. Pt says he has tried suboxone maintenance therapy in the past. Patient reports a history of depression and anxiety. He was seeing a psychiatrist at [facility] but has not followed up. He is currently feeling depressed and anxious and reports feelings of hopelessness and helplessness. Reports suicidal ideation without any plan. Reports anxiety irritability and agitation and reports withdrawal symptoms including shaking, lack of appetite, sweating, and insomnia. He denies any visual, auditory hallucinations or paranoid thoughts. Consultations:: List each consultation separately and include: 1. Reason for request. 2. Findings. 3. Follow-up Summary of Hospital Course include:: 1. Description of specific treatment plan utilized for patients during their course of treatmen. 2. Summarize the time- course for resolution of acute symptoms and/or regressed behaviors. 3. Describe issues identified and worked on during hospitalization. 4. Describe medication utilized. 5. Describe medical problems identified and treated. 6. Reassessment of suicide risk Summary of Hospital Course: During the course of his stay, patient (pt) started progressively improving and he no longer remained irritable, depressed, suicidal and agitated. His mood and withdrawal symptoms were improved and he started attending groups and meetings and started socializing. Patient denied any feelings of hopelessness, helplessness, and worthlessness, denied any problem with the sleep or appetite, denied suicidal ideation or homicidal ideation. Pt denied any auditory or visual hallucinations. Some changes were made in his current medications and patient was discharged on following medications. He tolerated these medications very well and denied any side effects. - Final Diagnosis (DSM 5) Condition upon Discharge: GOOD DSM 5: Bipolar disorder most recent episode depressed severe without psychotic features Opioid use disorder severe Opioid withdrawal Sedative/hypnotic use disorder severe Sedative/hypnotic withdrawal Disposition: HOME/ ROUTINE Follow-up Treatment Plan: Education: Pt was educated and counseled about the risks and benefits of taking and not taking medications. Pt was educated and counseled about the risks of drinking and abusing drugs. Pt was educated and counseled to go to the ER or call 911 if pt develop suicidal ideation or homicidal ideation, worsening of symptoms or severe side effects of the meds. Prescriptions/Medication Reconciliation: Divalproex [Depakote DR] 500 mg PO BID 14 Days Gabapentin [Neurontin] 300 mg PO TID 14 Days QUEtiapine [Seroquel] 300 mg PO HS 14 Days - Smoking Cessation Smoking Cessation Medication prescribed: No - Antipsychotic Medications Pt discharged on 2 or more routine antipsychotic medications: No
[2017-01-28] MEDS ORDERED: Bacitracin Ointment 30 GM TUBE TOP SCH (11:30)
== END 2017-01-28 12:57 | disposition home or self-care (01) | DRG 430 ==
LOC: C.ER 22:39 → C.9OBSV 01-22 05:40 → C.5E 01-22 08:08 → OBSVTOIN 01-22 08:08
PROVIDERS: ADMIT Psychiatry & Neurology Psychiatry; ATTEND Psychiatry & Neurology Psychiatry
PROC: HZ2ZZZZ Detoxification Services for Substance Abuse Treatment (ICD-10-PCS; principal; 2017-01-22)
PROC: GZ56ZZZ Individual Psychotherapy, Supportive (ICD-10-PCS; 2017-01-22)
DX: F31.4 Bipolar disorder, current episode depressed, severe, without psychotic features (principal); R45.851 Suicidal ideations; I10 Essential (primary) hypertension; F11.23 Opioid dependence with withdrawal; F19.10 Other psychoactive substance abuse, uncomplicated; I25.10 Atherosclerotic heart disease of native coronary artery without angina pectoris; F41.9 Anxiety disorder, unspecified; J45.909 Unspecified asthma, uncomplicated; Z87.891 Personal history of nicotine dependence; E78.00 Pure hypercholesterolemia, unspecified

== ENCOUNTER 2017-04-08 22:55 | Observation (INO) | payer MEDICAID, OTHER ==
[2017-04-08 22:55] VITALS: BMI 25.8
[2017-04-08 23:59] LABS: BASO # 0.1 K/uL (0.0-0.2); BASO % 1.2 % (0.0-2.0); EOS # 0.1 K/uL (0.0-0.7); EOS % 3.1 % (0.0-4.0); HEMATOCRIT 43.9 % (35.0-51.0); LYMPH # 1.1 K/uL (1.0-4.3); LYMPH % 27.2 % (20.0-40.0); MEAN CELL VOLUME 92.7 fL (80.0-94.0); MEAN CORPUSCULAR HEMOGLOBIN 30.3 pg (27.0-31.0); MEAN CORPUSCULAR HGB CONC 32.7 g/dL (33.0-37.0); MEAN PLATELET VOLUME 9.6 fL (7.2-11.7); MONO # 0.7 K/uL (0.0-0.8); MONO % 18.1 % (0.0-10.0); RED CELL DISTRIBUTION WIDTH 14.8 % (11.5-14.5); WHITE BLOOD COUNT 4.1 K/uL (4.8-10.8)
[2017-04-09 00:17] LABS: CHLORIDE 95 mmol/L (98-107); SODIUM 143 mmol/L (132-148)
[2017-04-09 00:18] LABS: POTASSIUM 3.6 mmol/L (3.6-5.2)
[2017-04-09 00:20] LABS: ALB/GLOB RATIO 1.3 (1.0-2.1); ALKALINE PHOSPHATASE 149 U/L (38-126); AST/SGOT 679 U/L (17-59); BILIRUBIN,TOTAL 1.4 mg/dL (0.2-1.3); BLOOD UREA NITROGEN 8 mg/dL (9-20); CARBON DIOXIDE 33 mmol/L (22-30); GFR AFRICAN-AMERICAN > 60; TOTAL PROTEIN 7.4 g/dL (6.3-8.3)
[2017-04-09 00:21] LABS: ALCOHOL SERUM < 10 mg/dl (0-10); ALT/SGPT 771 U/L (21-72); CALCIUM 8.8 mg/dl (8.6-10.4); GLUCOSE,RANDOM 95 mg/dL (75-110)
[2017-04-09 00:35] LABS: RBC URINE 1 /hpf (0-3); URINE BILIRUBIN NEGATIVE (NEGATIVE); URINE BLOOD NEGATIVE (NEGATIVE); URINE COLOR Amber (YELLOW); URINE GLUCOSE (UA) NORMAL (Normal); URINE KETONE NEGATIVE (NEGATIVE); URINE LEUKOCYTE ESTERASE NEG Leu/uL (Negative); URINE PROTEIN NEGATIVE (NEGATIVE); WBC URINE 1 /hpf (0-5)
--- NOTE | 2017-04-09 00:38 | C.PDOC ---
History Of Present Illness Patient presents to the ER with a stating he is depressed, hearing voices, and wants to commit suicide. Patient has been recently admitted for similar episodes ; denies physical complaints. Time Seen by Provider: 04/09/17 00:37 Chief Complaint (Nursing): Psychiatric Evaluation History Per: Patient History/Exam Limitations: no limitations Onset/Duration Of Symptoms: Days Current Symptoms Are (Timing): Still Present Suicide/Self Injury Attempted (Context): None Modifying Factor(s): None Severity: None Pain Scale Rating Of: 0 Associated Symptoms: Depression, Suicidal Thoughts. denies: Suicidal Plan Involuntary Hold By: None Recent travel outside of the [place]: No Past Medical History Reviewed: Historical Data, Nursing Documentation, Vital Signs Vital Signs: Last Vital Signs Temp 98.3 F 04/09/17 05:29 Pulse 64 04/09/17 05:29 Resp 16 04/09/17 05:29 BP 103/66 04/09/17 05:29 Pulse Ox 97 04/09/17 05:29 - Medical History PMH: Anxiety, Depression, HTN, Hypercholesterolemia Surgical History: No Surg Hx - [facility] Procedures DETOXIFICATION SERVICES FOR SUBSTANCE ABUSE TREATMENT (01/22/17) GROUP PSYCHOTHERAPY (12/25/16) INDIV FRUIT TESTER FOR SUBSTANCE ABUSE, COGNITIVE BEHAVIORAL (12/10/16) INDIVIDUAL PSYCHOTHERAPY, BEHAVIORAL (12/25/16) INDIVIDUAL PSYCHOTHERAPY, COGNITIVE-BEHAVIORAL (12/10/16) INDIVIDUAL PSYCHOTHERAPY, SUPPORTIVE (01/22/17) PHARMACOTHERAPY FOR SUBSTANCE ABUSE TREATMENT, ANTABUSE (12/10/16) Family History: States: Unknown Family Hx - Social History Hx Tobacco Use: Yes (light smoker) Hx Alcohol Use: Yes Hx Substance Use: Yes - Immunization History Hx Tetanus Toxoid Vaccination: No Hx Influenza Vaccination: No Hx Pneumococcal Vaccination: No Review Of Systems Constitutional: Negative for: Fever, Chills Gastrointestinal: Negative for: Nausea, Vomiting, Diarrhea Psych: Positive for: Depression, Suicidal ideation Physical Exam - Physical Exam Appears: Non-toxic Skin: Warm, Dry Oral Mucosa: Moist Chest: Symmetrical, No Tenderness Cardiovascular: Rhythm Regular, No Murmur Respiratory: No Rales, No Rhonchi, No Wheezing Gastrointestinal/Abdominal: Soft, No Tenderness Neurological/Psych: Oriented x3 ED Course And Treatment - Laboratory Results Result Diagrams: 04/08/17 23:56 04/08/17 23:56 O2 Sat by Pulse Oximetry: 99 (Room air) Pulse Ox Interpretation: Normal Progress Note: Crisis consulted. ED OBSERVATION Date of observation admission: 04/09/17 Time of observation admission: 00:15 - Observation admission statement Patient is being placed in observation because:: depression - Goals of Observation Goals of observation are:: pending crisis eval and disposition - Progress Note Progress Note: 04/09/17 00:49 vitals stable 04/09/17 04:49 no complaints Disposition Counseled Patient/Family Regarding: Studies Performed, Diagnosis - Disposition Disposition Time: 00:38 Condition: FAIR - Clinical Impression Clinical Impression: Depression - Scribe Statement The provider has reviewed the documentation as recorded by the Scribe Alcon Licona All medical record entries made by the Scribe were at my direction and personally dictated by me. I have reviewed the chart and agree that the record accurately reflects my personal performance of the history, physical exam, medical decision making, and the department course for this patient. I have also personally directed, reviewed, and agree with the discharge instructions and disposition. Physician Patient Turnover Patient Signed Over To: Luisa Kumar Handoff Comments: pending bed availability at [facility]
[2017-04-09 07:50] VITALS: RESP 18
--- NOTE | 2017-04-09 08:17 | RAD ---
HISTORY: psych COMPARISON: 10/05/2016 FINDINGS: LUNGS: No active pulmonary disease. PLEURA: No significant pleural effusion identified, no pneumothorax apparent. CARDIOVASCULAR: Normal. OSSEOUS STRUCTURES: No significant abnormalities. VISUALIZED UPPER ABDOMEN: Normal. OTHER FINDINGS: None. IMPRESSION: No active disease. No change
[2017-04-09 12:14] VITALS: O2SAT 100
[2017-04-09 12:52] LABS: CHLORIDE 97 mmol/L (98-107)
[2017-04-09 12:53] LABS: POTASSIUM 4.6 mmol/L (3.6-5.2); SODIUM 138 mmol/L (132-148)
[2017-04-09 12:55] LABS: ALB/GLOB RATIO 1.3 (1.0-2.1); ALKALINE PHOSPHATASE 168 U/L (38-126); BILIRUBIN,TOTAL 1.6 mg/dL (0.2-1.3); BLOOD UREA NITROGEN 6 mg/dL (9-20); CARBON DIOXIDE 29 mmol/L (22-30); GFR AFRICAN-AMERICAN > 60; GLUCOSE,RANDOM 93 mg/dL (75-110); TOTAL PROTEIN 7.3 g/dL (6.3-8.3)
[2017-04-09 12:56] LABS: ALT/SGPT 818 U/L (21-72); CALCIUM 9.3 mg/dl (8.6-10.4)
[2017-04-09 13:06] LABS: AST/SGOT 613 U/L (17-59)
--- NOTE | 2017-04-09 14:17 | US ---
HISTORY: elevated lfts COMPARISON: None available TECHNIQUE: Sonographic evaluation of the abdomen. FINDINGS: LIVER: Measures 16.1 cm in sagittal dimension and appears within normal limits of size, shape, and echotexture. No focal hepatic mass identified. The main portal vein appears patent with normal directional flow. No intrahepatic bile duct dilatation. GALLBLADDER: No gallstones. No gallbladder wall thickening. Negative sonographic Piper's sign as assessed by the employee benefits administrator. COMMON BILE DUCT: Measures 2 mm. PANCREAS: Not well visualized. RIGHT KIDNEY: Measures 11.5 x 4.2 x 4.8 cm. No obstructing calculus or hydronephrosis identified. LEFT KIDNEY: Measures 10.6 x 5.2 x 6.2 cm. No obstructing calculus or hydronephrosis identified. SPLEEN: Measures approximately 11.7 cm. AORTA: Limited views appear unremarkable. IVC: Limited views appear unremarkable. OTHER FINDINGS: None. IMPRESSION: Unremarkable abdominal sonogram with findings as above.
[2017-04-09 16:26] VITALS: TEMP 98
[2017-04-09 17:24] VITALS: BP 102/59; PULSE 66
--- NOTE | 2017-04-12 13:17 | CARD ---
APPROVED REPORT EKG Measurement Heart [id number] [id number] <Conclusion> Normal sinus rhythm Early repolarization Normal ECG
== END 2017-04-09 17:40 | disposition home or self-care (01) ==
LOC: SUPCPDRO 22:55 → C.ER 22:55 → C.9OBSV 04-09 07:00
PROVIDERS: ADMIT Emergency Medicine; ATTEND Emergency Medicine
DX: F11.10 Opioid abuse, uncomplicated (principal); F13.10 Sedative, hypnotic or anxiolytic abuse, uncomplicated; I10 Essential (primary) hypertension; E78.00 Pure hypercholesterolemia, unspecified; F17.210 Nicotine dependence, cigarettes, uncomplicated
CPT/HCPCS: 36415; 71010; 76700; 80053; 80320; 80324; 80329; 80345; 80346; 80349; 80353; 80358; 80361; 81001; 83992; 85025; 99285; G0378

== ENCOUNTER 2017-04-27 09:45 | Inpatient (IN) | payer MEDICAID, OTHER ==
[2017-04-27 09:45] VITALS: BMI 25.8
--- NOTE | 2017-04-27 09:49 | C.PDOC ---
History Of Present Illness 31 year old male with a Hx of HTN, opioid abuse, depression, and suicidal ideation who presents to the ER as a transfer from [place] for psychiatric admission for suicidal ideation. Patient denies physical complaints at this time. Time Seen by Provider: 04/27/17 09:47 History Per: Patient History/Exam Limitations: no limitations Onset/Duration Of Symptoms: Days Current Symptoms Are (Timing): Still Present Suicide/Self Injury Attempted (Context): None Modifying Factor(s): None Pain Scale Rating Of: 0 Associated Symptoms: Depression, Suicidal Thoughts Involuntary Hold By: None Recent travel outside of the [place]: No Past Medical History Reviewed: Historical Data, Nursing Documentation, Vital Signs Vital Signs: Last Vital Signs Temp 98.2 F 04/29/17 09:46 Pulse 71 04/29/17 17:47 Resp 16 04/29/17 09:46 BP 124/78 04/29/17 17:47 Pulse Ox 99 04/29/17 09:46 - Medical History PMH: Anxiety, Asthma, Bipolar Disorder, Depression, HTN, Hypercholesterolemia Surgical History: No Surg Hx - [facility] Procedures DETOXIFICATION SERVICES FOR SUBSTANCE ABUSE TREATMENT (04/09/17) GROUP PSYCHOTHERAPY (12/25/16) INDIV LAYER UP FOR SUBSTANCE ABUSE, COGNITIVE BEHAVIORAL (12/10/16) INDIV PSYCHOTHERAPY FOR SUBSTANCE ABUSE TREATMENT, SUPPORT (04/09/17) INDIVIDUAL PSYCHOTHERAPY, BEHAVIORAL (12/25/16) INDIVIDUAL PSYCHOTHERAPY, COGNITIVE-BEHAVIORAL (12/10/16) INDIVIDUAL PSYCHOTHERAPY, SUPPORTIVE (01/22/17) MEDS MGMT FOR SUBSTANCE ABUSE TREATMENT, OTH REPL MED (04/09/17) PHARMACOTHERAPY FOR SUBSTANCE ABUSE TREATMENT, ANTABUSE (12/10/16) Family History: States: Unknown Family Hx - Social History Hx Tobacco Use: Yes (light smoker) Hx Alcohol Use: Yes Hx Substance Use: Yes (Heroin, marijuana) - Immunization History Hx Tetanus Toxoid Vaccination: No Hx Influenza Vaccination: No Hx Pneumococcal Vaccination: No Review Of Systems Constitutional: Negative for: Fever, Chills Gastrointestinal: Negative for: Nausea, Vomiting, Diarrhea Physical Exam - Physical Exam Appears: Non-toxic, Other (Awake, Alert, Subdued, Cooperative) Skin: Normal Color, Warm, Dry Head: Atraumatic, Normacephalic Oral Mucosa: Moist Chest: Symmetrical, No Tenderness Cardiovascular: Rhythm Regular, No Murmur Respiratory: Normal Breath Sounds, No Rales, No Rhonchi, No Wheezing Gastrointestinal/Abdominal: Soft, No Tenderness Neurological/Psych: Oriented x3, Normal Speech, Normal Cognition Disposition - Disposition Disposition: HOSPITALIZED Disposition Time: 09:48 Condition: STABLE - Clinical Impression Clinical Impression: Opioid abuse, Suicidal thoughts - Scribe Statement The provider has reviewed the documentation as recorded by the Scribearnestine Licona All medical record entries made by the Scribe were at my direction and personally dictated by me. I have reviewed the chart and agree that the record accurately reflects my personal performance of the history, physical exam, medical decision making, and the department course for this patient. I have also personally directed, reviewed, and agree with the discharge instructions and disposition. Decision To Admit - Pt Status Changed To: Hospital Disposition Of: Inpatient - Admit Certification Admit to Inpatient:: After my assessment, the patient will require hospitalization for at least two midnights. This is because of the severity of symptoms shown, intensity of services needed, and/or the medical risk in this patient being treated as an outpatient. - InPatient: Physician Admission Certification: I certify that this patient requires 2 or more midnights of care for the following reason:: suicidal - . Bed Request Type: Psychiatry Patient Diagnosis: Opioid abuse, Suicidal thoughts
--- NOTE | 2017-04-27 11:53 | PCM.BM ---
<Mile Merino - Last Filed: 04/27/17 11:50> Treatment Plan Problems - Problems identified on initial assessmt Depression Date Initiated: 04/27/17 Time Initiated: 11:50 Assessment reference: NA Status: Active Opioid Abuse Date Initiated: 04/27/17 Time Initiated: 11:52 Assessment reference: NA Status: Active Treatment assets and liabiliti Patient Assests: adapts well, cooperative, ADL independent, physically healthy, negotiates basic needs, cognitively intact Patient Liabilities: live alone, substance abuse (Opiates) - Milieu Protocol Maintain good personal hygiene: daily Encourage regular showers, daily Remind patient to perform daily oral care, other Assist patient to perform ADL's (Self) Conduct patient checks and document Observation sheet: Q15 minutes (For Observation) Maintain personal safety: every shift Educate patient to report safety concerns to staff, every shift Monitor environment for contraband/sharps Medication safety: Monitor for expected outcome, potential side effects: every shift, Assess barriers to learning: every shift, Assess readiness for medication education: every shift <Sarah Leonard - Last Filed: 04/29/17 13:19> Family Contact Family involvement: Famliy/SO not involved - Goals for Treatment Patient goals for treatment: "I need rehab." Discharge/Continuing Care - Education Needs Education Needs: Patient Medication, Patient Coping Skills, Patient Placement options, Patient Community resources - Discharge Discharge Criteria: Tolerates medication w/o severe side effects, Reduction of target symptoms Discharge to:: Substance Abuse Rehab - Treatment Team Participation Discussed with Family/SO: No Was Patient/Family/SO present at Treatment Team Meeting: Yes <Eduar Khan - Last Filed: 04/29/17 14:09> - Diagnosis (1) Depression Status: Acute Interventions: 04/29/17 14:08 * Assess/adjust medications daily and /or as needed * See patient on an individual basis 7x/week to assess level of manic behaviors and stability * Discuss risks, benefits, side effects and alternatives of medications (2) Opioid dependence Status: Acute Interventions: 04/29/17 14:09 * Assess 7x/week regarding severity of withdrawal * Educate regarding risks, benefits, side effects and alternatives of medications * Use Motivational Interviewing for abstinence * Use CBT for relapse prevention * Medication management for withdrawal symptoms * Encourage medication assisted treatment
[2017-04-27] MEDS: Multiple Vitamins Tab PO SCH (16:18)
--- NOTE | 2017-04-27 19:10 | PCM.PSYCH ---
Initial Psychiatric Evaluation - Initial Psychiatric Evaluation Type of Admission: Voluntary Legal Status: Capacity Chief Complaint (in patient's own words): "I have withdrawal" Patient's Reaction to Hospitalization: I'm feeling safe History of Present Illness and Precipitating Events: This is a 31 yo male, history of depression, opioid dependence. multiple admissions to [facility] and [facility] since sep this year. He was transferred to [facility] from [facility] for depression and suicidal ideation. He reported that he is injecting and snorting 5-10 bags of heroin daily. Last use was yesterday. He is c/o opioid withdrawal symptoms and state he last used heroin 1 days ago. He is feeling restless, anxious, cant sleep, has been feeling nauseated and is having stomach and muscle cramping, chills, etc. He is preoccupied currently with getting medications to help with withdrawal. he reports he has depression and anxiety. He reported that he had suicidal ideation before hospital admission. However, he is feeling safe and denied ay SI, intent or plan. He reported depressive symptoms such as feeling worthless, low level of energy, guilt feeling, sad mood , difficulty in sleep. He states he follows up with a program in [place]. He denied A/V/H. He denied OCD symptoms. Time Spend 35 minutes Current Medications: Active Medications Generic Name Dose Route Start Last Admin Trade Name Chas PRN Reason Stop Dose Admin Aspirin 81 mg 04/27/17 15:00 04/27/17 16:18 Aspirin Chewable PO 81 mg DAILY XIN Administration Buspirone HCl 15 mg 04/27/17 18:00 04/27/17 17:40 Buspar PO 15 mg BID XIN Administration Escitalopram Oxalate 20 mg 04/27/17 15:00 04/27/17 16:18 Lexapro PO 20 mg DAILY XIN Administration Gabapentin 600 mg 04/27/17 18:00 04/27/17 17:40 Neurontin PO 600 mg TID XIN Administration Levetiracetam 500 mg 04/27/17 18:00 04/27/17 17:44 Keppra PO Not Given BID XIN Methadone HCl 15 mg 04/28/17 09:00 Methadone PO 04/28/17 09:01 ONCE ONE Methadone HCl 10 mg 04/29/17 09:00 Methadone PO 04/29/17 09:01 ONCE ONE Methadone HCl 5 mg 04/30/17 09:00 Methadone PO 04/30/17 09:01 ONCE ONE Multivitamins 1 tab 04/27/17 15:00 04/27/17 16:18 Hexavitamin PO 1 tab DAILY XIN Administration Pneumococcal Polyvalent Vaccine 0.5 ml 04/30/17 10:00 Pneumovax 23 Vaccine IM 04/30/17 10:01 .ONCE ONE Quetiapine Fumarate 100 mg 04/27/17 18:00 04/27/17 17:40 Seroquel PO 100 mg BID XIN Administration Past Psychiatric History - Past Psychiatric History Previous Treatment History: Inpatient Prior Professional Help: He reproted he had detox many years ago, unable to recall Prior Psychiatric Treatment: more than 6 admission since 09/2016 At [facility] hospital: [facility] History of Abuse: Please see HPI. Per chart review he uses 20 bags of heroin iv/snorting daily for last 5 years, history of cocaine use. smokes cigarettes. History of ETOH/Drug Use: denied Pertinent Medical Hx (Current Medical&Sleep Prob, Allergies): Allergies Allergy/AdvReac Type Severity Reaction Status Date / Time No Known Allergies Allergy Verified 04/08/17 23:18 Aspirin [Ecotrin] 81 mg PO DAILY 10/05/16 Atorvastatin Calcium 10 mg PO HS 01/21/17 Buspirone HCl 15 mg PO BID #30 04/12/17 Cholecalciferol [Vitamin D 1000 IU] 1,000 iu PO DAILY #30 tab 04/12/17 Escitalopram [Lexapro] 20 mg PO DAILY #15 tab 04/12/17 Gabapentin [Neurontin] 600 mg PO TID #45 tab 04/12/17 Multimineral/Multivitamin [Therapeutic-M Tab] 1 tab PO DAILY tab 04/12/17 QUEtiapine [Seroquel] 100 mg PO BIDHS #45 tab 04/12/17 levETIRAcetam [Keppra] 500 mg PO BID #30 tab 04/12/17 Review of Systems - Constitutional Constitutional: Chills, Sweats - EENT Eyes: As Per HPI Nose/Mouth/Throat: Nasal Discharge, Sore Throat - Cardiovascular Cardiovascular: As Per HPI - Respiratory Respiratory: UNREMARKABLE - Gastrointestinal Additional comments: Stomach cramps Mental Status Examination - Personal Presentation Personal Presentation: Looks stated age Additional comments: ccoperative - Affect Affect: Constricted - Motor Activity Motor Activity: Psychomotor Agitation - Reliability in Providing Information Reliability in Providing Information: Fair - Speech Speech: Organized - Mood Mood: Depressed - Formal Thought Process Formal Thought Process: Hallucinations (AH male voices telling him that he is worthless.) - Hallucinations/Delusions Hallucinations: Auditory - Obsessions/Compulsions Obsessions: No Compulsions: No - Cognitive Functions Orientation: Person, Place, Situation, Time Sensorium: Alert Attention/Concentration: Attentive Abstract Thinking: [place] Estimate of Intelligence: Average Judgement: Imparied, as evidence by: Poor judgement, Imparied, as evidence by: Lack of insight into illness Memory: Recent intact, as evidence by: Ability to recall events of the day - Risk Additional comments: denied - Strength & Assets Inventory Strength & Assets Inventory: Family support, Cooperative - Limitations Limitations: Other (substance abuse) DSM 5 DX - DSM 5 DSM 5 Diagnosis: opioid dependence, Opioid withdrawal MDD single, with psychotic features - Recommended/Plan of Treatment Treatment Recommendations and Plan of Treatment: Admit to 5E to stabilize on meds. Start Methadone detox for opioid. Start Enalapril for HTN. Start Gabapentin for mood stabilization/Anxiety. Start Seroquel for mood stabilization. Monitor vitals as per floor protocol. CBT. INDIVIDUAL AND GROUP THERAPY. Projected ELOS: 5-7 DAYS Prognosis: Fair with meds Discharge Plan and Discharge Criteria: as per SW - Smoking Cessation Smoking Cessation Initiated: Yes
[2017-04-28] MEDS: Multiple Vitamins Tab PO SCH (09:29)
--- NOTE | 2017-04-28 19:48 | PCM.PYCHPN ---
Psychiatric Progress Note - Psychiatric Progress Note Patient seen today, length of contact: 17 minutes Patient Chief Complaint: "I'm feeling little better" Problems Identified/Issues Discussed: Patient was seen. Chart was reviewed important content noted. Nurse input received. Patient stated that he is feeling little better. However, he is has meds seeking behavior and was asking about klonopin. He reported opioid withdrawal symptoms such as yawning, tremors and difficulty in focusing. But, on evaluation no physiological symptoms were observed. He was involved in groups and involved with other peers activities. No events overnight. Patient slept well and is eating well. Patient denies any depressive symptoms. Denies suicidal or homicidal ideation. Patient does not report hallucinations. No delusions elicited. No paranoia elicited. Patient has remained in good clinical and behavioral control. Diagnostic Results: no new labs DSM 5 Symptoms Update: opioid dependence, Opioid withdrawal MDD single, with psychotic features r/o Bipolar d/o r/o substance induce mood d/o Medication Change: No Medical Record Reviewed: No Mental Status Examination - Cognitive Function Orientation: Person, Place, Situation, Time Memory: Intact Attention: WNL Concentration: WNL Association: [facility] Fund of Knowledge: [facility] Decription of patient's judgement and insights: fair/ limited - Mood Mood: Other (he reproted that he is feeling little better) - Affect Affect: Constricted - Formal Thought Process Formal Thought Process: No Impairment, Hallucinations Psychotic Thoughts and Behaviors: he reported AH, however, he is not internally preoccupied or responding to stimuli. - Suicidal Ideation Suicidal Ideation: No - Homicidal Ideation Homicidal Ideation: No Goal/Treatment Plan - Goal/Treatment Plan Progress Toward Problem(s) and Goals/Treatment Plan: Admit to 5E to stabilize on meds. Continue Methadone taper for opioid. Enalapril for HTN. Gabapentin for mood stabilization/Anxiety. Seroquel for mood stabilization. Monitor vitals as per floor protocol. CBT. INDIVIDUAL AND GROUP THERAPY Supportive therapy provided.
[2017-04-29] MEDS: Multiple Vitamins Tab PO SCH (09:30)
[2017-04-29 09:47] VITALS: O2SAT 99
--- NOTE | 2017-04-29 13:56 | PCM.PYCHPN ---
Psychiatric Progress Note - Psychiatric Progress Note Patient seen today, length of contact: 16 minutes Patient Chief Complaint: "I'm feeling depressed." Problems Identified/Issues Discussed: The pt is seen, chart reviewed, case discussed with staff. Patient reports feeling anxious and depressed. He also feels stressed about these conditions. Patient admits to feelings of hopelessness and worthlessness. Patient is not sure whether voices or thoughts are leading him to feel depressed. Patient reports taking his medications and denies any side effects to medication. However, patient states that medications are not helping him. Patient reports he is still experiencing withdrawal symptoms; he is tearing, shaking, sneezing, has a decreased appetite, and is feeling nauseous. He needs more time for stabilization. After care was discussed; coordinate inpatient program with SW. Medication Change: Yes (Methadone taper) Medical Record Reviewed: Yes Mental Status Examination - Cognitive Function Orientation: Person, Place, Situation, Time Memory: Intact Attention: WNL Concentration: Poor Association: WNL Fund of Knowledge: Poor - Mood Mood: Depressed, Anxious - Affect Affect: Constricted - Formal Thought Process Formal Thought Process: Hallucinations - Suicidal Ideation Suicidal Ideation: No - Homicidal Ideation Homicidal Ideation: No Goal/Treatment Plan - Goal/Treatment Plan Need for Continued Stay: Discharge may exacerbated symptoms, Severe functional impairment Progress Toward Problem(s) and Goals/Treatment Plan: Opioid dependence, Opioid withdrawal MDD single, with psychotic features Admit to 5E to stabilize on meds. Start Methadone detox for opioid. Start Enalapril for HTN. Start Gabapentin for mood stabilization/Anxiety. Start Seroquel for mood stabilization. Monitor vitals as per floor protocol. CBT. INDIVIDUAL AND GROUP THERAPY. - Smoking Cessation Smoking Cessation Initiated: No
--- NOTE | 2017-04-30 09:34 | PCM.PYCHPN ---
Psychiatric Progress Note - Psychiatric Progress Note Patient seen today, length of contact: 16 minutes Patient Chief Complaint: "I'm feeling better." Problems Identified/Issues Discussed: The pt is seen, chart reviewed, case discussed with staff. Patient reports improvement in his mood and sleep. He also reports improvement in the voices and paranoia. He reports that he is still experiencing withdrawal symptoms. However, he denies any SI/HI. Patient reports taking his medications and denies any side effects to medication. He needs more time for stabilization. After care was discussed; coordinate inpatient program with SW. Medication Change: Yes (Methadone taper) Medical Record Reviewed: Yes Mental Status Examination - Cognitive Function Orientation: Person, Place, Situation, Time Memory: Intact Attention: WNL Concentration: WNL Association: WNL Fund of Knowledge: Poor - Mood Mood: Anxious - Affect Affect: Constricted - Formal Thought Process Formal Thought Process: No Impairment - Suicidal Ideation Suicidal Ideation: No - Homicidal Ideation Homicidal Ideation: No Goal/Treatment Plan - Goal/Treatment Plan Need for Continued Stay: Discharge may exacerbated symptoms, Severe functional impairment Progress Toward Problem(s) and Goals/Treatment Plan: Opioid dependence, Opioid withdrawal MDD single, with psychotic features Admit to 5E to stabilize on meds. Start Methadone detox for opioid. Start Enalapril for HTN. Start Gabapentin for mood stabilization/Anxiety. Start Seroquel for mood stabilization. Monitor vitals as per floor protocol. CBT. INDIVIDUAL AND GROUP THERAPY. - Smoking Cessation Smoking Cessation Initiated: No
[2017-04-30] MEDS ORDERED: Pneumococcal 23-Valent Vaccine IM ONE (10:00)
[2017-04-30] MEDS: Multiple Vitamins Tab PO SCH (10:31)
[2017-05-01 07:40] VITALS: BP 102/60; PULSE 62; RESP 19; TEMP 98.5
[2017-05-01] MEDS: Multiple Vitamins Tab PO SCH (09:52)
--- NOTE | 2017-05-01 10:04 | PCM.PYCHDC ---
Mental Status Examination - Mental Status Examination Orientation: Person, Place, Situation, Time Memory: Intact Mood: Neutral Affect: Constricted Speech: Soft Attention: WNL Concentration: WNL Association: WNL Fund of Knowledge: WNL Formal Thought Process: No Impairment Description of patient's judgement and insight: good, fair Psychotic Thoughts and Behaviors: denies any AVH Suicidal Ideation: No Current Homicidal Ideation?: No Discharge Summary - Discharge Note Reason for Hospitalization: This is a 31 yo male, history of depression, opioid dependence. multiple admissions to [facility] and [facility] since sep this year. He was transferred to [facility] from [facility] for depression and suicidal ideation. He reported that he is injecting and snorting 5-10 bags of heroin daily. Last use was yesterday. He is c/o opioid withdrawal symptoms and state he last used heroin 1 days ago. He is feeling restless, anxious, cant sleep, has been feeling nauseated and is having stomach and muscle cramping, chills, etc. He is preoccupied currently with getting medications to help with withdrawal. he reports he has depression and anxiety. He reported that he had suicidal ideation before hospital admission. However, he is feeling safe and denied ay SI, intent or plan. He reported depressive symptoms such as feeling worthless, low level of energy, guilt feeling, sad mood , difficulty in sleep. He states he follows up with a program in [place]. He reported AH of male voices telling him that he is worthless person. He denied OCD symptoms. Consultations:: List each consultation separately and include: 1. Reason for request. 2. Findings. 3. Follow-up Summary of Hospital Course include:: 1. Description of specific treatment plan utilized for patients during their course of treatmen. 2. Summarize the time- course for resolution of acute symptoms and/or regressed behaviors. 3. Describe issues identified and worked on during hospitalization. 4. Describe medication utilized. 5. Describe medical problems identified and treated. 6. Reassessment of suicide risk Summary of Hospital Course: During the course of his stay, patient (pt) started progressively improving and he no longer remained irritable, depressed, and suicidal. His mood was improved and he started attending groups and meetings and started socializing. Patient denied any feelings of hopelessness, helplessness, and worthlessness, denied any problem with the sleep or appetite, denied suicidal ideation or homicidal ideation. Pt denied any auditory or visual hallucinations. Some changes were made in his current medications and patient was discharged on following medications. He tolerated these medications very well and denied any side effects. CBT and AR were used. - Diagnosis (1) Depression Status: Acute (2) Opioid dependence Status: Acute - Final Diagnosis (DSM 5) Condition upon Discharge: STABLE DSM 5: Opioid dependence Opioid withdrawal MDD single, with psychotic features Disposition: HOME/ ROUTINE Follow-up Treatment Plan: Education: Pt was educated and counseled about the risks and benefits of taking and not taking medications. Pt was educated and counseled about the risks of drinking and abusing drugs. Pt was educated and counseled to go to the ER or call 911 if pt develop suicidal ideation or homicidal ideation, worsening of symptoms or severe side effects of the meds. Prescriptions/Medication Reconciliation: Aspirin [Aspirin Chewable] 81 mg PO DAILY #14 Escitalopram [Lexapro] 20 mg PO DAILY #14 tab Gabapentin [Neurontin] 600 mg PO TID 14 Days QUEtiapine [Seroquel] 100 mg PO BID 14 Days - Smoking Cessation Smoking Cessation Medication prescribed: No - Antipsychotic Medications Pt discharged on 2 or more routine antipsychotic medications: No
== END 2017-05-01 08:05 | disposition home or self-care (01) | DRG 744 ==
LOC: C.ER 09:45 → C.5E 09:59
PROVIDERS: ADMIT Psychiatry & Neurology Psychiatry; ATTEND Psychiatry & Neurology Psychiatry
PROC: HZ91ZZZ Pharmacotherapy for Substance Abuse Treatment, Methadone Maintenance (ICD-10-PCS; principal; 2017-04-27)
PROC: HZ2ZZZZ Detoxification Services for Substance Abuse Treatment (ICD-10-PCS; 2017-04-27)
PROC: HZ52ZZZ Individual Psychotherapy for Substance Abuse Treatment, Cognitive-Behavioral (ICD-10-PCS; 2017-04-27)
PROC: HZ93ZZZ Pharmacotherapy for Substance Abuse Treatment, Antabuse (ICD-10-PCS; 2017-04-27)
PROC: HZ46ZZZ Group Counseling for Substance Abuse Treatment, Psychoeducation (ICD-10-PCS; 2017-04-27)
DX: F11.23 Opioid dependence with withdrawal (principal); F32.3 Major depressive disorder, single episode, severe with psychotic features; R45.851 Suicidal ideations; I10 Essential (primary) hypertension; E78.00 Pure hypercholesterolemia, unspecified; F41.9 Anxiety disorder, unspecified; J45.909 Unspecified asthma, uncomplicated; F17.210 Nicotine dependence, cigarettes, uncomplicated

== ENCOUNTER 2017-08-12 21:42 | Emergency (ER) | payer SELFPAY ==
[2017-08-12 21:42] VITALS: BMI 25.8
--- NOTE | 2017-08-12 21:56 | C.PDOC ---
History Of Present Illness Patient presents to the ED for evaluation of depression. Patient states he feels like he wants to throw himself under a bus. Patient has stopped taking his medication but notes use of Heroin and took Tylenol PM prior to arrival. Patient denies vomiting, diarrhea, abdominal pain, or homicidal ideations. Time Seen by Provider: 08/12/17 21:55 Chief Complaint (Nursing): Psychiatric Evaluation History Per: Patient History/Exam Limitations: no limitations Current Symptoms Are (Timing): Still Present Modifying Factor(s): Narcotics (Heroin) Associated Symptoms: Depression, Suicidal Thoughts Involuntary Hold By: None Recent travel outside of the [place]: No Past Medical History Reviewed: Historical Data, Nursing Documentation, Vital Signs Vital Signs: Last Vital Signs Temp 97.8 F 08/13/17 01:24 Pulse 85 08/13/17 01:24 Resp 16 08/13/17 01:24 BP 110/62 08/13/17 01:24 Pulse Ox 98 08/13/17 02:36 - Medical History PMH: Anxiety, Asthma, Bipolar Disorder, Depression, HTN, Hypercholesterolemia, Seizures - [facility] Procedures DETOXIFICATION SERVICES FOR SUBSTANCE ABUSE TREATMENT (04/27/17) GROUP [employer]ELOPER FOR SUBSTANCE ABUSE TREATMENT, PSYCHOEDUCATION (04/27/17) GROUP PSYCHOTHERAPY (12/25/16) INDIV [employer] BUSINESS DEVELOPER FOR SUBSTANCE ABUSE, COGNITIVE BEHAVIORAL (12/10/16) INDIV PSYCHOTHERAPY FOR SUBSTANCE ABUSE TREATMENT, SUPPORT (04/09/17) INDIV PSYCHOTHERAPY FOR SUBSTANCE ABUSE, COGNITIV BEHAVIORAL (04/27/17) INDIVIDUAL PSYCHOTHERAPY, BEHAVIORAL (12/25/16) INDIVIDUAL PSYCHOTHERAPY, COGNITIVE-BEHAVIORAL (12/10/16) INDIVIDUAL PSYCHOTHERAPY, SUPPORTIVE (01/22/17) MEDS MGMT FOR SUBSTANCE ABUSE TREATMENT, OTH REPL MED (04/09/17) PHARMACOTHERAPY FOR SUBSTANCE ABUSE TREATMENT, ANTABUSE (04/27/17) PHARMACOTHERAPY FOR SUBSTANCE ABUSE, METHADONE MAINT (04/27/17) Family History: States: Unknown Family Hx - Social History Hx Tobacco Use: Yes (light smoker) Hx Alcohol Use: No Hx Substance Use: Yes - Immunization History Hx Tetanus Toxoid Vaccination: No Hx Influenza Vaccination: No Hx Pneumococcal Vaccination: No Review Of Systems Constitutional: Negative for: Fever, Chills Gastrointestinal: Negative for: Nausea, Vomiting Psych: Positive for: Depression, Suicidal ideation Physical Exam - Physical Exam Appears: Non-toxic, No Acute Distress Skin: Warm, Dry, No Rash Head: Atraumatic, Normacephalic, No Tenderness Eye(s): bilateral: Normal Inspection, PERRL, EOMI Oral Mucosa: Moist Neck: Supple Chest: Symmetrical, No Deformity Cardiovascular: Rhythm Regular, No Murmur Respiratory: No Rales, No Rhonchi, No Wheezing Gastrointestinal/Abdominal: Soft, No Tenderness, No Distention, No Guarding, No Rebound Extremity: Normal ROM, No Tenderness Neurological/Psych: Oriented x3, Other (depressed affect ) ED Course And Treatment - Laboratory Results Result Diagrams: 08/12/17 22:25 08/12/17 22:25 ECG: Interpreted By Me, Viewed By Me ECG Rhythm: Sinus Rhythm (69), Nonspecific Changes O2 Sat by Pulse Oximetry: 98 (RA) Pulse Ox Interpretation: Normal Progress Note: Labs and blood work were ordered. Patient was evaluated by CRISIS counselor. Pt was cleared for discharge by dr Acevedo Reevaluation Time: 03:17 Reassessment Condition: Improved Disposition Counseled Patient/Family Regarding: Studies Performed, Diagnosis, Need For Followup - Disposition Referrals: Community Mental Health [Outside] Disposition: HOME/ ROUTINE Disposition Time: 21:56 Condition: FAIR Instructions: Depression (DC) Forms: [facility] (Icelandic) - Clinical Impression Clinical Impression: Depression - Scribe Statement The provider has reviewed the documentation as recorded by the Scribe Gloria Thornton All medical record entries made by the Scribe were at my direction and personally dictated by me. I have reviewed the chart and agree that the record accurately reflects my personal performance of the history, physical exam, medical decision making, and the department course for this patient. I have also personally directed, reviewed, and agree with the discharge instructions and disposition.
[2017-08-12 22:28] LABS: BASO % 0.2 % (0.0-2.0); EOS # 0.2 K/uL (0.0-0.7); EOS % 2.8 % (0.0-4.0); HEMATOCRIT 40.1 % (35.0-51.0); LYMPH # 1.6 K/uL (1.0-4.3); LYMPH % 23.1 % (20.0-40.0); MEAN CELL VOLUME 87.4 fL (80.0-94.0); MEAN CORPUSCULAR HEMOGLOBIN 29.6 pg (27.0-31.0); MEAN CORPUSCULAR HGB CONC 33.9 g/dL (33.0-37.0); MEAN PLATELET VOLUME 8.5 fL (7.2-11.7); MONO # 1.1 K/uL (0.0-0.8); MONO % 16.8 % (0.0-10.0); NRBC % 0.1 % (0.0-2.0); RED CELL DISTRIBUTION WIDTH 13.2 % (11.5-14.5); WHITE BLOOD COUNT 6.8 K/uL (4.8-10.8)
[2017-08-12 22:43] LABS: ALB/GLOB RATIO 1.3 (1.0-2.1); ALCOHOL SERUM < 10 mg/dl (0-10); ALKALINE PHOSPHATASE 76 U/L (38-126); ALT/SGPT 27 U/L (21-72); AST/SGOT 19 U/L (17-59); BILIRUBIN,TOTAL 0.9 mg/dL (0.2-1.3); BLOOD UREA NITROGEN 12 mg/dL (9-20); CALCIUM 9.1 mg/dl (8.6-10.4); CARBON DIOXIDE 30 mmol/L (22-30); CHLORIDE 96 mmol/L (98-107); GFR AFRICAN-AMERICAN > 60; GLUCOSE,RANDOM 108 mg/dL (75-110); POTASSIUM 3.7 mmol/L (3.6-5.2); SODIUM 137 mmol/L (132-148); TOTAL PROTEIN 7.8 g/dL (6.3-8.3)
[2017-08-13 00:38] LABS: RBC URINE < 1 /hpf (0-3); URINE BILIRUBIN NEGATIVE (NEGATIVE); URINE BLOOD NEGATIVE (NEGATIVE); URINE COLOR Amber (YELLOW); URINE GLUCOSE (UA) NORMAL (Normal); URINE KETONE NEGATIVE (NEGATIVE); URINE LEUKOCYTE ESTERASE NEG Leu/uL (Negative); URINE PROTEIN 1+ mg/dL (NEGATIVE); WBC URINE < 1 /hpf (0-5)
[2017-08-13 03:28] VITALS: BP 119/76; PULSE 74; RESP 20; TEMP 97.4; O2SAT 99
== END 2017-08-13 03:40 | disposition home or self-care (01) ==
LOC: SUPCPDRO 21:42 → C.ER 21:42
DX: F32.9 Major depressive disorder, single episode, unspecified (principal); I10 Essential (primary) hypertension; F41.9 Anxiety disorder, unspecified; F17.210 Nicotine dependence, cigarettes, uncomplicated
CPT/HCPCS: 80053; 81001; 85025; 99285; G0480